=== PATIENT | female | born 1985 | race Caucasian/White ===

== ENCOUNTER 2016-09-18 00:50 | Emergency (ER) | payer OTHER ==
[2016-09-18] MEDS ORDERED: ALBUTEROL/IPRATROPIUM 2.5/0.5 MG 3 ML/EACH DOSE ONE (01:45)
[2016-09-18] MEDS ORDERED: LEVOFLOXACIN 250 MG TABLET ONE (02:18)
--- NOTE | 2016-09-18 07:02 | RAD ---
History: Dyspnea. Comparison: None. Technique: 2 views Findings: 2 views of the chest were performed demonstrating normal-appearing soft tissue and bony structures. There is asymmetric increased density identified within the lingula obscuring the left cardiac margin. No effusion is seen. The hilar and mediastinal structures are intact. Impression: 1. A lingular infiltrate.
== END 2016-09-18 02:34 | disposition home or self-care (01) ==
LOC: ED 00:50
DX: J18.9 Pneumonia, unspecified organism (principal); E78.5 Hyperlipidemia, unspecified; E78.00 Pure hypercholesterolemia, unspecified; G89.29 Other chronic pain; M54.9 Dorsalgia, unspecified; M79.7 Fibromyalgia; Z79.899 Other long term (current) drug therapy; Z88.1 Allergy status to other antibiotic agents; Z88.0 Allergy status to penicillin; Z88.2 Allergy status to sulfonamides; Z88.8 Allergy status to other drugs, medicaments and biological substances
CPT/HCPCS: 71020; 94640; 99283; 99284; A9270

== ENCOUNTER 2016-12-08 21:48 | Emergency (ER) | payer OTHER ==
[2016-12-08 23:43] LABS: HCG,QUALITATIVE URINE NEGATIVE
[2016-12-09] MEDS ORDERED: ACETAMINOPHEN 325 MG TABLET ONE (00:39)
[2016-12-09] MEDS ORDERED: DIPHENHYDRAMINE HCL 50 MG/1 ML VIAL ONE (00:39)
[2016-12-09] MEDS ORDERED: PROCHLORPERAZINE 5 MG/ML 2 ML VIAL ONE (00:39)
[2016-12-09] MEDS ORDERED: DEXAMETHASONE 4 MG TABLET ONE (00:39)
[2016-12-09] MEDS ORDERED: DIAZEPAM 5 MG/ML SYRINGE 2 ML ONE (00:40)
== END 2016-12-09 01:55 | disposition home or self-care (01) ==
LOC: ED 21:48
DX: G43.909 Migraine, unspecified, not intractable, without status migrainosus (principal); R42 Dizziness and giddiness; E78.5 Hyperlipidemia, unspecified; E78.00 Pure hypercholesterolemia, unspecified
CPT/HCPCS: 81025; 99283 ×2; 96372 ×3; J1200; J0780; A9270 ×2; J3360